=== PATIENT | female | born 1980 | race American Indian/Alaskan Native ===

== ENCOUNTER 2017-04-14 14:35 | Emergency (ER) | payer SELFPAY ==
[2017-04-14 14:50] VITALS: BP 149/94
--- NOTE | 2017-04-14 14:55 | Emergency Department Report ---
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 - ROS Review of Systems: + cough + chest pain - Exam Vital Signs: Vital Signs 04/14/17 14:46 Temperature 98.4 F Pulse Rate 101 H Respiratory 24 Rate Blood Pressure 149/94 O2 Sat by Pulse 100 Oximetry Physical Exam: PT drowsy in triage. no acute resp distress MSE screening note: Focused history and physical exam performed. Due to findings the following was ordered: ED Disposition for MSE Condition: Stable
[2017-04-14 15:29] LABS: Basophils % (Auto) 0.5 % (0.0-1.8); Hematocrit 36.8 % (30.3-42.9); Hemoglobin 11.9 gm/dl (10.1-14.3); Mean Corpuscular HGB Conc 32 % (30-34); Mean Corpuscular Volume 80 fl (79-97); Platelet Count 204 K/mm3 (140-440); Red Cell Distribution Width 15.8 % (13.2-15.2); White Blood Count 6.9 K/mm3 (4.5-11.0)
[2017-04-14 15:42] LABS: INR 0.97 (0.87-1.13); Mean Corpuscular Hemoglobin 26 pg (28-32)
[2017-04-14 15:43] LABS: Partial Thromboplastin Time 31.5 Sec. (24.2-36.6)
[2017-04-14 18:21] LABS: Alanine Aminotransferase 9 units/L (7-56); Albumin 3.5 g/dL (3.9-5); Albumin/Globulin Ratio 0.9 %; Alkaline Phosphatase 106 units/L (35-129); Anion Gap 18 mmol/L; BUN/Creatinine Ratio 7.14; Blood Urea Nitrogen 5 mg/dL (7-17); Calcium 8.8 mg/dL (8.4-10.2); Carbon Dioxide 23 mmol/L (22-30); Chloride 104.8 mmol/L (98-107); Glucose 127 mg/dL (65-100); Potassium 3.6 mmol/L (3.6-5.0); Sodium 142 mmol/L (137-145); Total Protein 7.3 g/dL (6.3-8.2)
[2017-04-14 21:31] LABS: Urine Drugs of Abuse Note Disclamer
[2017-04-14 21:44] LABS: Bacteria,Urine 1+ /HPF (Negative); Bilirubin,Urine NEG (Negative); Blood,Urine SM (Negative); Ketones,Urine NEG (Negative); Leukocyte Esterase,Urine NEG (Negative); Mucus,Urine FEW /HPF; Nitrite,Urine POS (Negative); Protein,Urine <15 mg/dL mg/dL (Negative); WBC,Urine < 1.0 /HPF (0.0-6.0)
--- NOTE | 2017-04-15 08:31 | XRay Report ---
CHEST 2 VIEWS INDICATION: Chest pain. COMPARISON: 01/22/2014 FINDINGS: PA and lateral chest radiographs suggest top normal heart size. Grossly normal mediastinal and hilar contours and slightly crowded lung markings centrally, given limited inspiration. No pleural effusions or CHF. Mild thoracic dextroscoliosis apex about T8. CONCLUSION: No acute chest process, stable. Thank you for the opportunity to participate in this patient's care.
== END 2017-04-15 00:45 | disposition left against medical advice (07) ==
LOC: ED 14:35
DX: R07.9 Chest pain, unspecified (principal); R05 Cough; Z53.21 Procedure and treatment not carried out due to patient leaving prior to being seen by health care provider
CPT/HCPCS: 36415; 71020; 80053; 80307; 81001; 82375; 84484; 84703; 85025; 85610; 85730; 93005; 93010